=== PATIENT | male | born 1985 | race Caucasian/White ===

== ENCOUNTER 2016-06-10 21:38 | Emergency (ER) | payer OTHER ==
[~2016-06-10] VITALS: Ht 193 cm; Wt 136.1 kg
[2016-06-10] MEDS ORDERED: ALBUTEROL SULF 2.5 MG/0.5ML(0.5%) NEB SOLN NEB ONE (22:00)
[2016-06-10] MEDS ORDERED: IPRATROPIUM BROM 0.5 MG/2.5ML INH SOL NEB ONE (22:00)
[2016-06-11] MEDS ORDERED: ALBUTEROL SULF 2.5 MG/0.5ML(0.5%) NEB SOLN NEB ONE ×2 (00:15→03:15)
[2016-06-11] MEDS ORDERED: IPRATROPIUM BROM 0.5 MG/2.5ML INH SOL NEB ONE ×2 (00:15→03:15)
[2016-06-11] MEDS ORDERED: SODIUM CHLORIDE 0.9% 1,000 ML IV ONE (00:15)
[2016-06-11] MEDS ORDERED: methylPREDNISolone SOD SUCC 125 MG/2 ML VL IV ONE (00:15)
[2016-06-11 04:47] VITALS: BP 114/61
== END 2016-06-11 04:47 | disposition home or self-care (01) ==
LOC: ER 21:52
DX: J45.901 Unspecified asthma with (acute) exacerbation (principal)
CPT/HCPCS: 71020; 94640; 96361; 96374; 99285; J2930; J7030; 94644; 94645

== ENCOUNTER 2017-02-27 14:12 | Emergency (ER) | payer OTHER ==
[~2017-02-27] VITALS: Ht 193 cm; Wt 136.1 kg
[2017-02-27 14:22] VITALS: BP 164/115
[2017-02-27] MEDS ORDERED: ALBUTEROL SULF 2.5 MG/0.5ML(0.5%) NEB SOLN NEB ONE (15:30)
[2017-02-27] MEDS ORDERED: IPRATROPIUM BROM 0.5 MG/2.5ML INH SOL NEB ONE (15:30)
== END 2017-02-27 16:26 | disposition home or self-care (01) ==
LOC: ER 14:12
DX: J98.01 Acute bronchospasm (principal); Z77.098 Contact with and (suspected) exposure to other hazardous, chiefly nonmedicinal, chemicals
CPT/HCPCS: 71046; 94640